=== PATIENT | male | born 1950 | race Caucasian/White ===

== ENCOUNTER 2018-09-04 19:33 | Emergency (ER) | payer OTHER ==
[2018-09-04] MEDS ORDERED: METF-450 PO (19:39)
--- NOTE | 2018-09-04 19:44 | ER Report ---
History and Physical Time Seen By MD: 19:39 Hx. of Stated Complaint: chest pressure that comes and goes for 3 hours. bp is high, monitor told him [place] HPI/ROS CHIEF COMPLAINT: Chest pressure HISTORY OF PRESENT ILLNESS: This is a 67-year-old male who presents to the emergency department for chest pressure. Patient states that over the last several weeks he's had intermittent right-sided chest pressure, no changes with activity, no nausea or vomiting. [place], flew into [place] today on vacation, landed around 11:00, had some lunch, has been in the car driving since and about 3-4 hours prior to arrival started experiencing some chest pressure on the right side again, were sustained this time, no diaphoresis, no visual changes and no nausea or vomiting. Has had some of these symptoms for about a year, has not had an evaluation. Denies chest pain. He became concerned so, came to the ER for further evaluation. His had a blood pressure monitor that they tried and noted he had elevated blood pressure and said that he was atrial fibrillation, no history of A. fib. On the bedside monitor patient is in a sinus rhythm. REVIEW OF SYSTEMS: Constitutional: No fever, no chills. Eyes: No discharge. ENT: No sore throat. Cardiovascular: As above. Respiratory: As above. Gastrointestinal: No abdominal pain, no vomiting. Genitourinary: No hematuria. Musculoskeletal: No back pain. Skin: No rashes. Neurological: No headache. Allergies: Coded Allergies: No Known Drug Allergies (Unverified , 09/04/18) Home Meds Reported Medications Ezetimibe (ZETIA) 10 Mg Tablet, 10 MG PO QDAY, TAB 09/04/18 Metformin Hcl (METFORMIN HCL) 500 Mg Tablet, 1 TAB PO QDAY, TAB 09/04/18 Past Medical/Surgical History Patient has a past medical surgical history of her glasses, hypercholesterolemia, prediabetic. Reviewed Nurses Notes: Yes Hx Substance Use Disorder: No Hx Alcohol Use: Yes (socially) Constitutional Vital Sign - Last 24 Hours 09/04/18 09/04/18 09/04/18 09/04/18 19:33 19:36 19:38 19:48 Temp 98.5 Pulse ??? 101 100 Resp 14 9 B/P (MAP) 184/105 184/105 (131) Pulse Ox 90 93 O2 Delivery Room Air 09/04/18 09/04/18 09/04/18 09/04/18 20:00 20:03 20:30 20:33 Pulse 91 91 Resp 16 26 B/P (MAP) 151/98 (115) 150/90 (110) Pulse Ox 90 92 09/04/18 09/04/18 09/04/18 09/04/18 20:38 20:43 20:43 20:51 Pulse 88 84 88 Resp 21 18 18 Pulse Ox 93 91 O2 Delivery Room Air 09/04/18 09/04/18 20:53 21:00 Pulse 95 Resp 14 B/P (MAP) 168/91 (116) Pulse Ox 99 Physical Exam General Appearance: The patient is alert, has no immediate need for airway protection and no signs of toxicity. Eyes: Pupils equal and round no pallor or injection. ENT, Mouth: Mucous membranes are moist. Respiratory: There are no retractions, lungs are clear to auscultation. Cardiovascular: Regular rate and rhythm. No murmurs, clicks or rubs. Gastrointestinal: Abdomen is soft and non tender, no masses, bowel sounds normal. Neurological: Alert and oriented 4. Moving all. Following all commands. No focal neuro deficits. Skin: Warm and dry, no rashes. Musculoskeletal: Neck is supple non tender. Extremities are nontender, nonswollen and have full range of motion. DIFFERENTIAL DIAGNOSIS: After history and physical exam differential diagnosis was considered for chest pain including but not limited to myocardial ischemia, pericarditis pulmonary embolus, chest wall pain, pleural inflammation and pulmonary infectious causes. Medical Decision Making Data Points Result Diagram: 09/04/18193909/04/181939 Laboratory Hematology Test 09/04/18 19:40 Red Blood Count 5.85 M/uL (4.00-5.60) Mean Corpuscular Volume 85.4 fL (80.0-96.0) Mean Corpuscular Hemoglobin 28.8 pg (26.0-33.0) Mean Corpuscular Hemoglobin Concent 33.8 g/dL (32.0-36.0) Red Cell Distribution Width 13.1 % (11.5-14.5) Mean Platelet Volume 7.8 fL (7.2-11.1) Neutrophils (%) (Auto) 49.7 % (39.4-72.5) Lymphocytes (%) (Auto) 35.6 % (17.6-49.6) Monocytes (%) (Auto) 10.1 % (4.1-12.4) Eosinophils (%) (Auto) 2.0 % (0.4-6.7) Basophils (%) (Auto) 2.6 % (0.3-1.4) Nucleated RBC Relative Count (auto) 0.1 /100WBC Neutrophils # (Auto) 3.4 K/uL (2.0-7.4) Lymphocytes # (Auto) 2.4 K/uL (1.3-3.6) Monocytes # (Auto) 0.7 K/uL (0.3-1.0) Eosinophils # (Auto) 0.1 K/uL (0.0-0.5) Basophils # (Auto) 0.2 K/uL (0.0-0.1) Nucleated RBC Absolute Count (auto) 0.01 K/uL D-Dimer Quantitative (PE/DVT) 0.49 ug/ml (0-0.50) Sodium Level 140 mmol/L (137-145) Potassium Level 3.7 mmol/L (3.5-5.0) Chloride Level 101 mmol/L (98-107) Carbon Dioxide Level 31 mmol/L (22-30) Blood Urea Nitrogen 24 mg/dl (9-21) Creatinine 1.20 mg/dl (0.66-1.25) Glomerular Filtration Rate Calc > 60.0 Random Glucose 121 mg/dl (75-110) Calcium Level 9.4 mg/dl (8.4-10.2) Total Bilirubin 0.4 mg/dl (0.2-1.3) Aspartate Amino Transf (AST/SGOT) 41 U/L (0-35) Alanine Aminotransferase (ALT/SGPT) 37 U/L (0-56) Alkaline Phosphatase 72 U/L (0-126) Troponin I < 0.012 ng/ml Total Protein 8.1 g/dl (6.3-8.2) Albumin 4.9 g/dl (3.5-5.0) Chemistry Test 09/04/18 19:40 White Blood Count 6.8 k/uL (4.5-11.0) Red Blood Count 5.85 M/uL (4.00-5.60) Hemoglobin 16.9 g/dL (14.0-18.0) Hematocrit 49.9 % (42.0-52.0) Mean Corpuscular Volume 85.4 fL (80.0-96.0) Mean Corpuscular Hemoglobin 28.8 pg (26.0-33.0) Mean Corpuscular Hemoglobin Concent 33.8 g/dL (32.0-36.0) Red Cell Distribution Width 13.1 % (11.5-14.5) Platelet Count 307 K/uL (150-450) Mean Platelet Volume 7.8 fL (7.2-11.1) Neutrophils (%) (Auto) 49.7 % (39.4-72.5) Lymphocytes (%) (Auto) 35.6 % (17.6-49.6) Monocytes (%) (Auto) 10.1 % (4.1-12.4) Eosinophils (%) (Auto) 2.0 % (0.4-6.7) Basophils (%) (Auto) 2.6 % (0.3-1.4) Nucleated RBC Relative Count (auto) 0.1 /100WBC Neutrophils # (Auto) 3.4 K/uL (2.0-7.4) Lymphocytes # (Auto) 2.4 K/uL (1.3-3.6) Monocytes # (Auto) 0.7 K/uL (0.3-1.0) Eosinophils # (Auto) 0.1 K/uL (0.0-0.5) Basophils # (Auto) 0.2 K/uL (0.0-0.1) Nucleated RBC Absolute Count (auto) 0.01 K/uL D-Dimer Quantitative (PE/DVT) 0.49 ug/ml (0-0.50) Glomerular Filtration Rate Calc > 60.0 Calcium Level 9.4 mg/dl (8.4-10.2) Total Bilirubin 0.4 mg/dl (0.2-1.3) Aspartate Amino Transf (AST/SGOT) 41 U/L (0-35) Alanine Aminotransferase (ALT/SGPT) 37 U/L (0-56) Alkaline Phosphatase 72 U/L (0-126) Troponin I < 0.012 ng/ml Total Protein 8.1 g/dl (6.3-8.2) Albumin 4.9 g/dl (3.5-5.0) Coagulation Test 09/04/18 19:40 D-Dimer Quantitative (PE/DVT) 0.49 ug/ml EKG/Imaging EKG Interpretation 12 lead EKG: Time of EKG 1940. Rhythm: Normal sinus rhythm, tachycardia rate 97 bpm. [place]: normal QRS: normal ST segments: No ST depression or elevation identified. No previous EKGs for comparison. Imaging Location: [facility] - [place] Patient: Jabari Dennis : 1950 Visit/Account:[id number] Date of Sevice: 09/04/2018 CHEST PA LAT History: Chest Pain FINDINGS: Comparison studies: None. Tubes and Lines: None. Lungs and pleura: Well aerated. No evidence of focal consolidation or pleural effusions. Mediastinum: normal. Cardiac silhouette: normal . Osseous structures: Unremarkable for age . IMPRESSION: Normal chest Report Dictated By: Festus Ramires MD at 09/04/2018 8:42 PM Report E-Signed By: Festus Ramires MD at 09/04/2018 8:43 PM WSN:[facility] ED Course/Re-evaluation Clinical Indication for ER IV: Hydration, IV Access ED Course Patient was admitted to room. A history and physical obtained. Differential diagnoses were considered. IV was started. A CBC, CMP, troponin and d-dimer were obtained. EKG showing a sinus rhythm, no ST depression or elevation. A two-view chest x-ray was obtained. Laboratory studies unremarkable, negative d-dimer, negative troponin. Reviewed the results with the patient. Patient was given a DuoNeb to see if this would help ease his breathing, he does however deny increased chest pressure while in the emergency department. Negative two-view chest x-ray. No subjective changes in breathing after the DuoNeb. We discussed a repeat troponin however after the initial pressure roughly 3-4 hours prior to arrival no repeat troponin was warranted at this time. Patient will follow-up with his primary care provider when he returns home. He had no other questions or concerns at this time and was discharged. Decision to Disposition Date: Sep 04, 2018 Decision to Disposition Time: 21:01 Depart Departure Latest Vital Signs Vital Signs Date Time Temp Pulse Resp B/P (MAP) Pulse Ox O2 Delivery O2 Flow Rate FiO2 09/04/18 21:00 168/91 (116) 09/04/18 20:53 95 14 99 09/04/18 20:43 Room Air 09/04/18 19:36 98.5 Impression: Primary Impression: Chest tightness or pressure Condition: Improved Disposition: HOME OR SELF-CARE Patient Instructions: Chest Pain (ED), Noncardiac Chest Pain (ED) Additional Instructions: Please follow up with your PCP when you return home, a stress test, pulmonary function test and echocardiogram may be worth discussing with your doctor. Please while on your trip, drink plenty of water. Get plenty of rest. Be sure to get out and walk around every 1-2 hours while traveling. If you experience increased pressure, pain or have any other concerns please return to our ED or follow up in the nearest ED for reevaluation. BRI DIOR WEATHER [employer]GORITHM SCIENTIST-BC Sep 04, 2018 19:44
[2018-09-04] MEDS ORDERED: EZET10TA41 PO (19:46)
[2018-09-04] MEDS ORDERED: NS(*) 0.9% 1000 ML BAG 1,000 ML IV ONE (19:58)
[2018-09-04] MEDS ORDERED: ASPIRIN 81 MG CHEW PO ONE (20:00)
[2018-09-04 20:08] LABS: PLATELET COUNT, AUTOMATED 307 K/uL (150-450)
--- NOTE | 2018-09-04 20:23 | EKG ---
FACILITY: [facility] - [place] PATIENT NAME: ROBSON DUFF : [id number] MR: [id number] V: [id number] EXAM DATE: ORDERING PHYSICIAN: BRI DIOR TECHNOLOGIST: DIPTI Ventura Reason : Blood Pressure : / mmHG Vent. Rate : 097 BPM Atrial Rate : 097 BPM P-R Int : 146 ms QRS Dur : 088 ms QT Int : 352 ms P-R-T Axes : 057 031 034 degrees QTc Int : 447 ms Normal sinus rhythm Normal ECG No previous ECGs available Confirmed by JUSTIN VANESSA ([id number]) on 09/05/2018 6:34:43 AM Referred By: Confirmed By:JUSTIN VANESSA
[2018-09-04] MEDS ORDERED: ALBUTEROL/IPRATROPIUM 3 ML NEB NEB ONE (20:35)
--- NOTE | 2018-09-04 20:47 | RADIOLOGY IMAGING REPORT ---
[place] [facility] [place] Jabari Dennis : 1950 MR: [id number] V: [id number] EXAM DATE: ORDERING PHYSICIAN: BRI DIOR TECHNOLOGIST: [place] [facility] [place] Jabari Dennis : 1950 Visit/Account:[id number] Date of Sevice: 09/04/2018 CHEST PA LAT History: Chest Pain FINDINGS: Comparison studies: None. Tubes and Lines: None. Lungs and pleura: Well aerated. No evidence of focal consolidation or pleural effusions. Mediastinum: normal. Cardiac silhouette: normal . Osseous structures: Unremarkable for age . IMPRESSION: Normal chest Report Dictated By: Festus Ramires MD at 09/04/2018 8:42 PM Report E-Signed By: Festus Ramires MD at 09/04/2018 8:43 PM WSN:[id number]
[2018-09-04 21:00] VITALS: BP 168/91
== END 2018-09-04 21:04 | disposition home or self-care (01) ==
LOC: ER 19:37
DX: R07.9 Chest pain, unspecified (principal); R73.03 Prediabetes; R06.9 Unspecified abnormalities of breathing
CPT/HCPCS: 71046; 84484; 85025; 85379; 93005; 94640; 99284; J7030; J7620; 82040; 82247; 82310; 82374; 82435; 82565; 82947; 84075; 84132; 84155; 84295; 84450; 84460; 84520